=== PATIENT | female | born 1985 | race Two or more races ===

== ENCOUNTER 2017-10-10 10:02 | Emergency (ER) | payer OTHER ==
[~2017-10-10 10:02] MED LIST: BENADRYL25 MG PO; CLINDAGEL40 M1 TP; NKM; VICODIN 5-5001 EACH PO
--- NOTE | 2017-10-10 13:47 | Emergency Room Report ---
History of Present Illness General Chief Complaint: To Be Triaged Present Illness Allergies: Coded Allergies: No Known Allergies (Unverified , 01/01/13) Medical Decision Making Disposition: LEFT W/OUT BEING SEEN SHEA HERNDON M.D. Oct 10, 2017 13:47
== END 2017-10-10 10:17 | disposition left against medical advice (07) ==
LOC: EMR 10:16
DX: M54.2 Cervicalgia (principal); Z53.21 Procedure and treatment not carried out due to patient leaving prior to being seen by health care provider
CPT/HCPCS: 99281